=== PATIENT | female | born 1970 | race Caucasian/White ===

== ENCOUNTER 2020-03-12 21:30 | Emergency (ER) | payer OTHER ==
[~2020-03-12] VITALS: Ht 165.1 cm; Wt 86.2 kg
[2020-03-12 21:31] VITALS: BP 123/82
[2020-03-12] MEDS ORDERED: MOBIC15 MG PO (22:20)
== END 2020-03-12 22:25 | disposition home or self-care (01) ==
LOC: ER 21:30
DX: M94.0 Chondrocostal junction syndrome [Tietze] (principal); F17.210 Nicotine dependence, cigarettes, uncomplicated